=== PATIENT | female | born 1930 | race Caucasian/White ===

== ENCOUNTER 2019-07-03 07:48 | Emergency (ER) | payer MEDICARE, BC ==
[~2019-07-03] VITALS: Ht 172.7 cm; Wt 76.0 kg
[2019-07-03] MEDS ORDERED: MORPHINE SULFATE 2 MG/ML DISP.SYRIN. IV ONE (08:00)
[2019-07-03] MEDS ORDERED: ONDANSETRON PF 4 MG/2 ML VIAL. IVP ONE (08:00)
[2019-07-03] MEDS ORDERED: ALBUTEROL SULFATE 2.5 MG/3 ML NEBU. CONT NEB ONE (08:00)
[2019-07-03 08:09] LABS: BASO # 0.1 x10^3/uL (0.0-0.2); BASO % 1 % (0-3); EOS # 0.3 x10^3/uL (0.0-0.7); EOS % 2 % (0-3); HEMATOCRIT 47.6 % (36.0-47.0); HEMOGLOBIN 15.3 g/dL (12.0-15.5); LYMPH # 7.9 x10^3/uL (1.0-4.8); LYMPH % 53 % (24-48); MEAN CORPUSCULAR HEMOGLOBIN 30 pg (25-35); MEAN CORPUSCULAR HGB CONC 32 g/dL (31-37); MEAN CORPUSCULAR VOLUME 93 fL (79-100); MONO # 0.8 x10^3/uL (0.0-1.1); MONO % 6 % (0-9); NEUT # 5.8 x10^3uL (1.8-7.7); NEUT % 39 % (31-73); PLATELET COUNT 247 x10^3/uL (140-400); RED BLOOD COUNT 5.11 x10^6/uL (3.50-5.40); RED CELL DISTRIBUTION WIDTH 12.7 % (11.5-14.5); WHITE BLOOD COUNT 14.9 x10^3/uL (4.0-11.0)
[2019-07-03] MEDS ORDERED: IPRATRPIUM/ALBUTEROL 0.5/2.5MG 3 ML NEBU. NEB ONE (08:15)
[2019-07-03] MEDS ORDERED: FUROSEMIDE 40 MG/4 ML VIAL IVP ONE (08:15)
--- NOTE | 2019-07-03 08:16 | EKG ---
[address] [address] Test Date: 2019-07-03 Test Time: 08:10:42 Pat Name: BUDDY LUEVANO Department: Room: Gender: F Pen Maker: : [id number] Requested By: SUMIT AN Order Number: [id number] Reading MD: Measurements Intervals [place] Rate: 113 P: [place]: QRS: -17 QRSD: 78 T: 142 QT: 324 QTc: 450 Interpretive Statements IRREGULAR RHYTHM, NO P-WAVE FOUND LEFTWARD AXIS LVH WITH REPOLARIZATION ABNORMALITY ABNORMAL ECG RI6.01 No previous ECG available for comparison
[2019-07-03 08:17] LABS: CALCIUM 9.5 mg/dL (8.5-10.1); CREATININE 1.6 mg/dL (0.6-1.0); GFR 30.5; POTASSIUM 3.9 mmol/L (3.5-5.1)
--- NOTE | 2019-07-03 08:20 | PHYS DOC ---
Adult General Chief Complaint Chief Complaint: DYSPNEA/RESPIRATOY DISTRESS HPI HPI Patient is a 88-year-old female who presents with complaint of shortness of breath and cough. Patient reportedly has not been able to catch her breath this morning. EMS reports that upon their arrival patient's oxygen saturation was in the low 80s on 2 L of oxygen. Patient just states that she is unable to catch her breath. Patient does deny any chest pain. She is not able to answer any additional questions due to severity of symptoms. [] Review of Systems Review of Systems Constitutional: Denies fever or chills [] Respiratory: Complains of cough and shortness of breath [] Cardiovascular: No additional information not addressed in HPI [] GI: Denies abdominal pain, nausea, vomiting or diarrhea [] Neurologic: Denies headache, focal weakness or sensory changes [] Unable to fully assess review of systems due to severity of symptoms. Current Medications Current Medications Current Medications Medications (Trade) Dose Ordered Sig/Ross Start Time Stop Time Status Last Admin Dose Admin Albuterol Sulfate (Ventolin) 5 mg 1X ONCE 07/03/19 08:00 07/03/19 08:14 DC Albuterol/ Ipratropium (Duoneb) 3 ml 1X ONCE 07/03/19 08:15 07/03/19 08:16 DC Furosemide (Lasix) 40 mg 1X ONCE 07/03/19 08:15 07/03/19 08:16 DC Lorazepam (Ativan Inj) 1 mg 1X ONCE 07/03/19 08:15 07/03/19 08:16 DC Morphine Sulfate (Morphine 2mg Syringe) 2 mg 1X ONCE 07/03/19 08:00 07/03/19 08:14 DC 07/03/19 08:00 2 MG Ondansetron HCl (Zofran) 4 mg 1X ONCE 07/03/19 08:00 07/03/19 08:14 DC Allergies Allergies Allergies Coded Allergies Type Severity Reaction Last Updated Verified No Known Drug Allergies 07/03/19 No Physical Exam Physical Exam Constitutional: Well developed, well nourished, no acute distress, non-toxic appearance. [] HENT: Normocephalic, atraumatic, bilateral external ears normal, oropharynx moist, no oral exudates, nose normal. [] Eyes: PERRLA, EOMI, conjunctiva normal, no discharge. [] Neck: Normal range of motion, no tenderness, supple, no stridor. [] Cardiovascular:Heart rate regular rhythm, no murmur [] Lungs & Thorax: Bilateral breath sounds clear to auscultation [] Abdomen: Bowel sounds normal, soft, no tenderness, no masses, no pulsatile masses. [] Skin: Warm, dry, no erythema, no rash. [] Back: No tenderness, no CVA tenderness. [] Extremities: No tenderness, no cyanosis, no clubbing, ROM intact, no edema. [] Neurologic: Alert and oriented X 3, normal motor function, normal sensory function, no focal deficits noted. [] Psychologic: Affect normal, judgement normal, mood normal. [] Current Patient Data Vital Signs Vital Signs Date Time Temp Pulse Resp B/P (MAP) Pulse Ox O2 Delivery O2 Flow Rate FiO2 07/03/19 08:00 24 89 NonRebreather Mask Lab Results Laboratory Tests Test 07/03/19 07:50 White Blood Count 14.9 x10^3/uL (4.0-11.0) H Red Blood Count 5.11 x10^6/uL (3.50-5.40) Hemoglobin 15.3 g/dL (12.0-15.5) Hematocrit 47.6 % (36.0-47.0) H Mean Corpuscular Volume 93 fL (79-100) Mean Corpuscular Hemoglobin 30 pg (25-35) Mean Corpuscular Hemoglobin Concent 32 g/dL (31-37) Red Cell Distribution Width 12.7 % (11.5-14.5) Platelet Count 247 x10^3/uL (140-400) Neutrophils (%) (Auto) 39 % (31-73) Lymphocytes (%) (Auto) 53 % (24-48) H Monocytes (%) (Auto) 6 % (0-9) Eosinophils (%) (Auto) 2 % (0-3) Basophils (%) (Auto) 1 % (0-3) Neutrophils # (Auto) 5.8 x10^3uL (1.8-7.7) Lymphocytes # (Auto) 7.9 x10^3/uL (1.0-4.8) H Monocytes # (Auto) 0.8 x10^3/uL (0.0-1.1) Eosinophils # (Auto) 0.3 x10^3/uL (0.0-0.7) Basophils # (Auto) 0.1 x10^3/uL (0.0-0.2) Platelet Estimate Pending EKG EKG EKG demonstrates atrial fibrillation with RVR and rate of 113[] Radiology/Procedures Radiology/Procedures [] Course & Med Decision Making Course & Med Decision Making Pertinent Labs and Imaging studies reviewed. (See chart for details) [] Dragon Disclaimer Dragon Disclaimer This electronic medical record was generated, in whole or in part, using a voice recognition dictation system. Departure Departure: Impression: Primary Impression: NSTEMI (non-ST elevated myocardial infarction) Additional Impression: CHF (congestive heart failure) Disposition: XFER T-[facility] Admitting Physician: Elliot Louise Condition: IMPROVED Referrals: SOHEILA LEONE MD (PCP) Problem Qualifiers Additional Impression: CHF (congestive heart failure) Heart failure type: unspecified Heart failure chronicity: unspecified Qualified Codes: I50.9 - Heart failure, unspecified SUMIT AN Jr. DO Jul 03, 2019 08:20
[2019-07-03 08:31] LABS: ALBUMIN 4.2 g/dL (3.4-5.0); ALBUMIN/GLOBULIN RATIO 1.1 (1.0-1.7); TOTAL BILIRUBIN 0.5 mg/dL (0.2-1.0)
[2019-07-03] MEDS ORDERED: HEPARIN 25,000UTS/250ML PREMIX 250 ML IV PRN (08:45)
[2019-07-03] MEDS ORDERED: HEPARIN for IV BOLUS 10,000 UNIT/10 ML VIAL. IV ONE (08:45)
[2019-07-03] MEDS ORDERED: HEPARIN for IV BOLUS 10,000 UNIT/10 ML VIAL. IV PRN (08:45)
[2019-07-03] MEDS ORDERED: dilTIAZem 25 MG/5 ML VIAL IVP ONE (08:45)
[2019-07-03 08:56] LABS: BGAS PH 7.27 (7.35-7.45)
[2019-07-03 09:03] LABS: CLARITY,URINE CLEAR; COLOR,URINE STRAW; GLUCOSE,URINE 250 mg/dL (NEG)
[2019-07-03 09:04] LABS: BACTERIA,URINE 0 /HPF (0-FEW); BILIRUBIN,URINE NEG (NEG); NITRITE,URINE NEG (NEG); RBC,URINE RARE /HPF (0-2); SQUAMOUS EPITHELIAL CELL,UR OCC /LPF; UROBILINOGEN,URINE 0.2 mg/dL (0.2 mg/dL); WBC,URINE RARE /HPF (0-4)
--- NOTE | 2019-07-03 09:04 | RAD ---
PORTABLE CHEST 1V History: Shortness of breath Comparison: None. Findings: Bilateral interstitial thickening. Patchy bibasilar opacities. Small bilateral pleural effusions. Normal heart size. No pneumothorax. Impression: 1. Bilateral interstitial thickening, may represent pulmonary edema. 2. Small bilateral pleural effusions. Electronically signed by: Brian Fernández DO (07/03/2019 9:01 AM) [id number]
[2019-07-03 09:05] VITALS: BP 208/89
[2019-07-03 09:39] LABS: % BANDS 2 % (0-9); % BASOS 4 % (0-3); % EOS 3 % (0-5); % LYMPHS 48 % (24-48); % MONOS 7 % (0-10); % SEGS 36 % (35-66)
[2019-07-03 09:40] LABS: PLT ESTIMATE ADEQUATE (ADEQUATE)
== END 2019-07-03 09:55 | disposition short-term general hospital (02) ==
LOC: ER 07:48
DX: I21.4 Non-ST elevation (NSTEMI) myocardial infarction (principal); I50.9 Heart failure, unspecified
CPT/HCPCS: 36415; 71045; 80053; 81001; 82803; 83880; 84484; 85007; 85025; 85379; 85610; 85730; 93005; 94640; 96365; 96375; 96376; 99285; J1644; J1940; J2060; J2270; J3490; J7613; J7620

== ENCOUNTER 2019-11-17 15:20 | Emergency (ER) | payer MEDICARE, BC ==
[~2019-11-17] VITALS: Ht 162.6 cm; Wt 80.4 kg
[2019-11-17] MEDS ORDERED: SUCCINYLCHOLINE 200 MG/10 ML VIAL. ONE ×2 (15:30→15:34)
[2019-11-17] MEDS ORDERED: PROPOFOL 10,000 MCG/ML (100ML) VIAL IV ONE (15:30)
[2019-11-17] MEDS ORDERED: ETOMIDATE 40 MG/20 ML VIAL. IV ONE (15:30)
[2019-11-17] MEDS ORDERED: FUROSEMIDE 100 MG/10 ML VIAL ONE (15:43)
--- NOTE | 2019-11-17 15:58 | PHYS DOC ---
Past History Past Medical History: A-Fib, [place] Past Surgical History: No Surgical History Alcohol Use: None General Adult EDM: Chief Complaint: SHORTNESS OF BREATH HPI: HPI: Patient is an 89-year-old female who presents to the emergency department in respiratory failure. According to EMS, she was found in her car at the grocery store, although details of her location were not fully verified. EMS reported the patient with severe hypoxia, despite nonrebreather use, upon arrival in the emergency department her oxygen saturation was in the 70s on the nonrebreather. She will open her eyes to painful stimulus, but is otherwise unresponsive and not able to answer any questions. Her CODE STATUS, unknown at the time of initial presentation, but subsequently revealed to be DNR. There was no family to discuss CODE STATUS with, the patient's was attempted to be contact by phone but there was no answer. Due to the patient's nonresponsiveness, extremis and hypoxia, the decision was m kamari to manage her airway and intubate the patient. She is exhibiting diffuse expiratory crackles in all lung kaplan. The only o ther ER visit she has had here was in June for CHF, also with hypoxia, in the setting of a non-STEMI. She reportedly had a negative COVID test at her PCPs office about 3 weeks ago. This information is not verified. Review of Systems: Review of Systems: Unable to obtain review of systems secondary to patient's unresponsiveness Heart Score: Risk Factors: Risk Factors: DM, Current or recent (<one month) smoker, HTN, HLP, family history of CAD, obesity. Risk Scores: Score 0 - 3: 2.5% MACE over next 6 weeks - Discharge Home Score 4 - 6: 20.3% MACE over next 6 weeks - Admit for Clinical Observation Score 7 - 10: 72.7% MACE over next 6 weeks - Early Invasive Strategies Current Medications: Current Meds: Current Medications Medications (Trade) Dose Ordered Sig/Ross Start Time Stop Time Status Last Admin Dose Admin Furosemide (Lasix) 100 mg STK-MED ONCE 11/17/19 15:43 11/17/19 15:43 DC Succinylcholine Chloride (Anectine) 200 mg STK-MED ONCE 11/17/19 15:34 11/17/19 15:35 DC Allergies: Allergies: Allergies Coded Allergies Type Severity Reaction Last Updated Verified No Known Drug Allergies 07/03/19 No Physical Exam: PE: PHYSICAL EXAM: CONSTITUTIONAL: Well developed, well nourished HEAD: normocephalic, atraumatic EENT: PERRL, EOMI. Conjunctivae normal color, sclerae non-icteric; moist mucous membranes. NECK: Supple, non-tender; no meningismus. There is no JVD. LUNGS: Breathing is significantly labored. There are diffuse inspiratory and expiratory crackles, more prominent expiratory. HEART: Regular tachycardia, no murmur CHEST: No deformity; non-tender ABDOMEN: The abdomen is soft, and non-tender, no masses or bruits. EXTREM: Normal ROM; no deformity, no calf tenderness. Normal pulses palpable in all extremities. There is 2+ bilateral o pedal edema. SKIN: No rash; no diaphoresis NEURO: Patient is unresponsive. Current Patient Data: Labs: Laboratory Tests Test 11/17/19 15:35 11/17/19 15:47 White Blood Count 20.5 x10^3/uL Red Blood Count 5.28 x10^6/uL Hemoglobin 15.5 g/dL Hematocrit 48.3 % Mean Corpuscular Volume 91 fL Mean Corpuscular Hemoglobin 29 pg Mean Corpuscular Hemoglobin Concent 32 g/dL Red Cell Distribution Width 12.9 % Platelet Count 289 x10^3/uL Neutrophils (%) (Auto) 39 % Lymphocytes (%) (Auto) 53 % Monocytes (%) (Auto) 6 % Eosinophils (%) (Auto) 2 % Basophils (%) (Auto) 1 % Neutrophils # (Auto) 7.9 x10^3uL Lymphocytes # (Auto) 10.8 x10^3/uL Monocytes # (Auto) 1.3 x10^3/uL Eosinophils # (Auto) 0.3 x10^3/uL Basophils # (Auto) 0.2 x10^3/uL Platelet Estimate Pending Sodium Level 136 mmol/L Potassium Level 3.7 mmol/L Chloride Level 97 mmol/L Carbon Dioxide Level 29 mmol/L Anion Gap 10 Blood Urea Nitrogen 29 mg/dL Creatinine 1.7 mg/dL Estimated GFR (Cockcroft-Gault) 28.4 BUN/Creatinine Ratio 17 Glucose Level 250 mg/dL Lactic Acid Level 4.8 mmol/L Calcium Level 9.6 mg/dL Total Bilirubin 0.4 mg/dL Aspartate Amino Transf (AST/SGOT) 16 U/L Alanine Aminotransferase (ALT/SGPT) 19 U/L Alkaline Phosphatase 63 U/L Troponin I Quantitative 0.185 ng/mL DB-Tnr-U-Type Natriuretic Peptide 2619 pg/mL Total Protein 8.6 g/dL Albumin 3.9 g/dL Albumin/Globulin Ratio 0.8 Blood Gas pH 7.29 Blood Gas PCO2 54 mmHg Blood Gas PO2 138 mmHg Blood Gas HCO3 26 mmol/L Arterial Bld O2 Saturation (Calc) 99 % FiO2 100 % Current Medications Medications (Trade) Dose Ordered Sig/Ross Route PRN Reason Start Time Stop Time Status Last Admin Dose Admin Succinylcholine Chloride (Anectine) 200 mg STK-MED ONCE .ROUTE 11/17/19 15:34 11/17/19 15:35 DC Furosemide (Lasix) 100 mg STK-MED ONCE .ROUTE 11/17/19 15:43 11/17/19 15:43 DC Nitroglycerin/ Dextrose 250 ml @ 0 mls/hr 1X ONCE IV 11/17/19 16:00 11/17/19 16:01 DC Propofol 100 ml @ As Directed STK-MED ONCE IV 11/17/19 16:03 11/17/19 16:03 DC Piperacillin Sod/ Tazobactam Sod (Zosyn Per Pharmacy) 1 each 1X PRN MC SEE COMMENTS 11/17/19 16:45 Vancomycin HCl 1 gm/Sodium Chloride 250 ml @ 250 mls/hr 1X ONCE IV 11/17/19 16:45 11/17/19 16:42 DC Vancomycin HCl 2 gm/Sodium Chloride 500 ml @ 250 mls/hr 1X ONCE IV 11/17/19 16:45 11/17/19 18:44 Piperacillin Sod/ Tazobactam Sod 3.375 gm/Sodium Chloride 50 ml @ 100 mls/hr Q6HRS IV 11/17/19 17:00 Sodium Chloride 50 ml @ As Directed STK-MED ONCE .ROUTE 11/17/19 16:56 11/17/19 16:57 DC Sodium Chloride 50 ml @ As Directed STK-MED ONCE .ROUTE 11/17/19 16:57 11/17/19 16:58 DC Piperacillin Sod/ Tazobactam Sod (Zosyn) 3.375 gm STK-MED ONCE IV 11/17/19 16:58 11/17/19 16:58 DC EKG: EKG: [] Normal sinus rhythm at a rate of 120 bpm, normal axis, normal intervals, there is lateral T wave inversion. There are no acute ischemic ST/T changes. Radiology/Procedures: Radiology/Procedures: PROCEDURE: PORTABLE CHEST 1V Single AP view of the chest. Comparison: 07/03/2019. Indication: Respiratory failure Findings: Endotracheal tube is in good position sitting just above the walker. The heart is enlarged but stable. There is no pneumothorax or effusion. There are coarse reticular interstitial opacities identified predominantly in the left midlung in the right lung base. Impression: 1. Coarse reticular interstitial opacities suggest possible atypical infection or early ARDS. Endotracheal tube is seen just above the walker.[] Course & Med Decision Making: Course & Med Decision Making Pertinent Labs and Imaging studies reviewed. (See chart for details) [] 5:00 PM: The patient's condition has improved somewhat, her blood pressure has been labile, she initially dropped her blood pressure and her nitro drip and propofol drip were titrated downwards, but her pressure came up again and her medications were gradually titrated upwards. She is oxygenating in the 90s. Differential diagnosis includes flash pulmonary edema/CHF, as well as COVID, and other sources of infections. Because CHF is high on the differential the patient cannot be given further fluid resuscitation unless necessary for hemodynamic support. I have paged the hospitalist at [facility] to transfer the patient. Because she is intubated she will need to be transferred. There is still no family present in the emergency department. Although the patient is a DNR, it appears, from the circumstances of her respiratory arrest, in her car in the supermarket, that she is fairly functional at baseline. Although she is a DNR, if this is acute pulmonary edema, this might be a transient episode and she might be able to be returned to her baseline with some transient ventilatory support. Rather than withdraw care at this time, without consultation with the patient's family, she will be treated supportively at this time, with continuation of therapy until further discussion involving the family could be made. 5:15 PM: Dr. Hudson has accepted the patient in transfer. Patient's blood pressure has been labile and her drips of propofol and nitroglycerin are being titrated to treat her alternating high and low blood pressure. Her heart rate and oxygenation remained stable at this time CRITICAL CARE TIME: 50 Minutes, excluding any procedures and care of other patients. INTUBATION NOTE: The patient was preoxygenated, the to the greatest degree possible, with a [id number], and she was given 20 mg of etomidate and 100 mg of succinylcholine, and intubated using the glide scope. There was some frothy material in the pharynx, and a lot of liquid in the endotracheal tube which was suctioned almost immediately after intubation. Tube was secured. There was positive bilateral chest rise, bilateral breath sounds, and positive end-tidal CO2 detected after intubation. Patient tolerated intubation well. Dragon Disclaimer: [employer] medical Disclaimer: This electronic medical record was generated, in whole or in part, using a voice recognition dictation system. Departure Departure: Impression: Primary Impression: Respiratory failure Disposition: XFER [facility] Condition: CRITICAL Referrals: SOHEILA LEONE MD (PCP) Justification of Admission: Justification of Admission: Justification of Admission Dx: N/A TONYA HERRERA MD Nov 17, 2019 15:58
[2019-11-17] MEDS ORDERED: NITROGLYCERIN PREMIX 250 ML IV ONE (16:00)
[2019-11-17] MEDS ORDERED: PROPOFOL 100 ML IV ONE (16:03)
[2019-11-17 16:20] LABS: BGAS PH 7.29 (7.35-7.45)
--- NOTE | 2019-11-17 16:27 | RAD ---
Single AP view of the chest. Comparison: 07/03/2019. Indication: Respiratory failure Findings: Endotracheal tube is in good position sitting just above the walker. The heart is enlarged but stable. There is no pneumothorax or effusion. There are coarse reticular interstitial opacities identified predominantly in the left midlung in the right lung base. Impression: 1. Coarse reticular interstitial opacities suggest possible atypical infection or early ARDS. Endotracheal tube is seen just above the walker. Electronically signed by: Robert Boudreaux MD (11/17/2019 4:24 PM) [id number]
[2019-11-17 16:30] LABS: BASO # 0.2 x10^3/uL (0.0-0.2); BASO % 1 % (0-3); CALCIUM 9.6 mg/dL (8.5-10.1); CREATININE 1.7 mg/dL (0.6-1.0); EOS # 0.3 x10^3/uL (0.0-0.7); EOS % 2 % (0-3); GFR 28.4; HEMATOCRIT 48.3 % (36.0-47.0); HEMOGLOBIN 15.5 g/dL (12.0-15.5); LYMPH # 10.8 x10^3/uL (1.0-4.8); LYMPH % 53 % (24-48); MEAN CORPUSCULAR HEMOGLOBIN 29 pg (25-35); MEAN CORPUSCULAR HGB CONC 32 g/dL (31-37); MEAN CORPUSCULAR VOLUME 91 fL (79-100); MONO # 1.3 x10^3/uL (0.0-1.1); MONO % 6 % (0-9); NEUT # 7.9 x10^3uL (1.8-7.7); NEUT % 39 % (31-73); PLATELET COUNT 289 x10^3/uL (140-400); POTASSIUM 3.7 mmol/L (3.5-5.1); RED BLOOD COUNT 5.28 x10^6/uL (3.50-5.40); RED CELL DISTRIBUTION WIDTH 12.9 % (11.5-14.5); WHITE BLOOD COUNT 20.5 x10^3/uL (4.0-11.0)
[2019-11-17 16:42] LABS: ALBUMIN 3.9 g/dL (3.4-5.0); ALBUMIN/GLOBULIN RATIO 0.8 (1.0-1.7); TOTAL BILIRUBIN 0.4 mg/dL (0.2-1.0); TOTAL PROTEIN 8.6 g/dL (6.4-8.2)
[2019-11-17] MEDS ORDERED: VANCOMYCIN 1 GM in IV NORMAL SALINE 250ML 250 ML IV ONE (16:45)
[2019-11-17] MEDS ORDERED: VANCOMYCIN 2 GM in IV NORMAL SALINE 500ML 500 ML IV ONE (16:45)
[2019-11-17] MEDS ORDERED: PIP/TAZO PER PHARMACY MC PRN (16:45)
[2019-11-17] MEDS ORDERED: IV NORMAL SALINE 50ML 50 ML ONE ×2 (16:56→16:57)
[2019-11-17] MEDS ORDERED: PIPERACILLIN/TAZOBACTAM 3.375 GM VIAL IV ONE (16:58)
[2019-11-17] MEDS ORDERED: PIPERACILLIN/TAZOBACTAM 3.375 GM in IV NORMAL SALINE 50ML 50 ML IV SCH (17:00)
--- NOTE | 2019-11-17 17:35 | EKG ---
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
[2019-11-17 17:50] LABS: % BANDS 1 % (0-9); % EOS 1 % (0-5); % MONOS 3 % (0-10); % SEGS 31 % (35-66)
[2019-11-17 17:51] LABS: PLT ESTIMATE ADEQUATE (ADEQUATE)
[2019-11-17 17:52] LABS: % LYMPHS 64 % (24-48)
[2019-11-17 19:00] VITALS: BP 80/50
== END 2019-11-17 19:40 | disposition short-term general hospital (02) ==
LOC: ER 15:20
DX: J96.91 Respiratory failure, unspecified with hypoxia (principal); I48.20 Chronic atrial fibrillation, unspecified; I25.2 Old myocardial infarction; Z79.899 Other long term (current) drug therapy
CPT/HCPCS: 31500; 36415; 36600; 71045; 80053; 82803; 83605; 83880; 84484; 85007; 85025; 85610; 85730; 87040; 93005; 94002; 96365; 96367; 96375; 99291; J0330; J2543; J2704; J3010; J3370; J7040; U0003

== ENCOUNTER 2020-01-13 07:33 | Inpatient (IN) | payer MEDICARE, BC ==
[2020-01-13] VITALS (17 sets, daily range): BP systolic 92–197; BP diastolic 42–113
[~2020-01-13] VITALS: Ht 160 cm; Wt 75.7 kg
[2020-01-13] MEDS ORDERED: methylPREDNISolone SOD SUCC PF 125 MG/2 ML VIAL. IV ONE (07:45)
[2020-01-13] MEDS ORDERED: IPRATRPIUM/ALBUTEROL 0.5/2.5MG 3 ML NEBU. NEB ONE (07:45)
--- NOTE | 2020-01-13 07:47 | PHYS DOC ---
Past History Past Medical History: A-Fib, ID Past Surgical History: No Surgical History Alcohol Use: None Adult General HPI HPI Patient is a 89-year-old female who comes in in acute respiratory failure. Little history is obtainable from patient, majority obtained from EMS. Per EMS report, patient was found by a female with unknown relation to patient who lives at residents with patient to be profoundly short of breath. On arrival by fire crew, patient was found to be profoundly hypoxic around 70% on room air. Supplemental oxygen, 6 L via nasal cannula was started which improved patient's oxygenation to upper 80%. Patient was then emergently transported to our facility for evaluation. On arrival, patient GCS 9, communicating in single word sentences/answers. Per chart review, patient presented similarly in acute respiratory failure early November 2019. She was intubated at that time and transferred out for higher acuity of care, it was later found out that she was DNR status. Patient's CODE STATUS is unknown at this time, EMS was unable to elicit CODE STATUS from patient field marketing representative on site prior to transport here, patient currently does not have capacity and cannot accurately communicate CODE STATUS. After chart review, it appears patient is DNR. It is unknown if she has had any known COVID-19 patient exposure Review of Systems Review of Systems Unobtainable due to acute respiratory failure Current Medications Current Medications Current Medications Medications (Trade) Dose Ordered Sig/Ross Start Time Stop Time Status Last Admin Dose Admin Albuterol/ Ipratropium (Duoneb) 3 ml 1X ONCE 01/13/20 07:45 01/13/20 07:46 UNV Methylprednisolone Sodium Succinate (SOLU-Medrol 125MG VIAL) 125 mg 1X ONCE 01/13/20 07:45 01/13/20 07:46 UNV Allergies Allergies Allergies Coded Allergies Type Severity Reaction Last Updated Verified No Known Drug Allergies 07/03/19 No Physical Exam Physical Exam Constitutional: Well developed, well nourished, toxic appearing, acute respiratory distress HENT: Normocephalic, atraumatic, bilateral external ears normal, oropharynx dry, poor dentition, no oral exudates, nose normal. Eyes: PERRLA, EOMI, conjunctiva normal, no discharge. Neck: Normal range of motion, no tenderness, supple, no stridor. Cardiovascular: Heart rate tachycardic, sinus rhythm, no murmurs rubs or gallops Lungs & Thorax: Respiratory failure, gross accessory muscle usage noted, wheezes and rhonchi audible bilaterally Abdomen: Bowel sounds normal, soft, no tenderness, no masses, no pulsatile masses. Nonsurgical abdomen, no peritoneal signs Skin: Warm, diaphoretic, no erythema, no rash. Back: No tenderness, no CVA tenderness. Extremities: No tenderness, no cyanosis, no clubbing, ROM intact, no edema. Neurologic: Alert, not oriented, grossly normal motor & sensory function, no focal deficits noted. Psychologic: Flat affect, mood appropriate to situation Current Patient Data Vital Signs Vital Signs Date Time Temp Pulse Resp B/P (MAP) Pulse Ox O2 Delivery O2 Flow Rate FiO2 01/13/20 08:39 90 BiPAP/CPAP 01/13/20 07:33 97.9 107 26 185/112 (136) 6.0 Lab Results Laboratory Tests Test 01/13/20 07:35 01/13/20 07:44 Blood Gas pH 7.07 (7.35-7.45) Blood Gas PCO2 78 mmHg (35-45) Blood Gas PO2 49 mmHg (71-100) Blood Gas HCO3 23 mmol/L (22-26) Arterial Bld O2 Saturation (Calc) 66 % (92-99) FiO2 100 % White Blood Count 21.4 x10^3/uL (4.0-11.0) Red Blood Count 4.99 x10^6/uL (3.50-5.40) Hemoglobin 14.8 g/dL (12.0-15.5) Hematocrit 46.5 % (36.0-47.0) Mean Corpuscular Volume 93 fL (79-100) Mean Corpuscular Hemoglobin 30 pg (25-35) Mean Corpuscular Hemoglobin Concent 32 g/dL (31-37) Red Cell Distribution Width 13.7 % (11.5-14.5) Platelet Count 273 x10^3/uL (140-400) Neutrophils (%) (Auto) 36 % (31-73) Lymphocytes (%) (Auto) 55 % (24-48) Monocytes (%) (Auto) 6 % (0-9) Eosinophils (%) (Auto) 2 % (0-3) Basophils (%) (Auto) 1 % (0-3) Neutrophils # (Auto) 7.7 x10^3uL (1.8-7.7) Lymphocytes # (Auto) 11.7 x10^3/uL (1.0-4.8) Monocytes # (Auto) 1.3 x10^3/uL (0.0-1.1) Eosinophils # (Auto) 0.5 x10^3/uL (0.0-0.7) Basophils # (Auto) 0.2 x10^3/uL (0.0-0.2) Sodium Level 139 mmol/L (136-145) Potassium Level 3.8 mmol/L (3.5-5.1) Chloride Level 102 mmol/L (98-107) Carbon Dioxide Level 24 mmol/L (21-32) Anion Gap 13 (6-14) Blood Urea Nitrogen 38 mg/dL (7-20) Creatinine 2.0 mg/dL (0.6-1.0) Estimated GFR (Cockcroft-Gault) 23.5 BUN/Creatinine Ratio 19 (6-20) Glucose Level 321 mg/dL (70-99) Lactic Acid Level 5.3 mmol/L (0.4-2.0) Calcium Level 9.4 mg/dL (8.5-10.1) Total Bilirubin 0.5 mg/dL (0.2-1.0) Aspartate Amino Transf (AST/SGOT) 12 U/L (15-37) Alanine Aminotransferase (ALT/SGPT) 16 U/L (14-59) Alkaline Phosphatase 57 U/L (46-116) Troponin I Quantitative 0.070 ng/mL (0-0.055) ZD-Hcy-U-Type Natriuretic Peptide 3837 pg/mL (0-449) Total Protein 8.3 g/dL (6.4-8.2) Albumin 3.7 g/dL (3.4-5.0) Albumin/Globulin Ratio 0.8 (1.0-1.7) EKG EKG EKG ordered and interpreted by myself at 0819 hrs. as sinus tachycardia with a rate at 107 bpm, intervals grossly unremarkable except prolonged QTC at 492, left axis deviation, T wave inversions in leads aVL and V6, no STEMI Radiology/Procedures Radiology/Procedures PROCEDURE: PORTABLE CHEST 1V PORTABLE CHEST 1V 01/13/2020 7:39 AM INDICATION: Shortness of breath COMPARISON: 11/17/2019 TECHNIQUE: Portable frontal view of the chest is provided. FINDINGS: The cardiomediastinal silhouette is similar in appearance. Bilateral mixed interstitial and alveolar airspace disease is noted, progressed since the prior examination. Multifocal nodular opacities are present. Increase in small bilateral pleural effusions with adjacent compressive atelectasis versus infiltrate. No pneumothorax. No suspicious osseous abnormality. IMPRESSION: Bilateral mixed interstitial and alveolar airspace disease with interval progression since 11/17/2019. Electronically signed by: Allegra Stone MD (01/13/2020 8:21 AM) [id number] Course & Med Decision Making Course & Med Decision Making Patient seen on immediate ER arrival Airway patent, patient and obvious respiratory distress/failure, tachycardic (115bpm), hypoxic (72% on 6L), tachypneic (32 rr), and mildly hypertensive on arrival. GCS 9 Limited history obtained, comprehensive physical exam performed. I attempted to elicit CODE STATUS with no success. I attempted to contact patient contact on file but number is not working. Chart reviewed, appears patient is DNR IV access obtained with x2 large-bore IVs, extensive diagnostic studies ordered, patient transition from nasal cannula to nonrebreather mask with minimal relief in symptomology, escalated therapy to BIPAP which improved patient's resp distress Patient's PCP called, Dr. Walker, and patient's past medical history and case discussed. He confirmed she is DNR status. I discussed need for admission to ICU in critical condition, he was agreeable Patient continued on BiPAP, 125 mg IV Solu-Medrol administered, DuoNeb x1 given, and IV Unasyn (patient appears high risk for aspiration) and Levaquin started for empiric therapy for bilateral lung infiltrates It appears patient is septic and her acute respiratory failure is stemming from bilateral lung infiltrates. Patient also appears to have type II demand mismatch NSTEMI from her current respiratory failure/illness. In all, patient stabilized during current ER encounter but remains in critical condition. Patient transported to [facility] for further medical management in ICU setting under the care of Dr. Walker. Alise Disclaimer Alise Disclaimer This electronic medical record was generated, in whole or in part, using a voice recognition dictation system. Departure Departure: Impression: Primary Impression: Acute respiratory failure Additional Impressions: Sepsis Bilateral interstitial pneumonia NSTEMI (non-ST elevated myocardial infarction) Person under investigation for COVID-19 Disposition: ADMITTED INPATIENT ([facility]) Admitting Physician: Soheila Walekr Condition: STABLE Referrals: SOHEILA WALKER MD (PCP) Justification of Admission: Justification of Admission: Justification of Admission Dx: Yes Respiratory Failure: Severe Resp Distress HEART Score for Chest Pain PTs The HEART Score for CP Pts HEART Score for Chest Pain: HEART Score for Chest Pain Response (Comments) Value ECG Nonspecific Repolarizatio 1 Age > 65 2 Risk Factors >3 Risk Factors or Hx CAD 2 Troponin >1-<3x Normal Limit 1 Total 6 Risk Factors: Risk Factors: DM, Current or recent (<one month) smoker, HTN, HLP, family history of CAD, obesity. Risk Scores: Score 0 - 3: 2.5% MACE over next 6 weeks - Discharge Home Score 4 - 6: 20.3% MACE over next 6 weeks - Admit for Clinical Observation Score 7 - 10: 72.7% MACE over next 6 weeks - Early Invasive Strategies Sepsis Assessment Date and Time of Assessment Date: Jan 13, 2020 Time: 08:12 Respirations Respiratory Effort: Accessory muscles, Shortness of air, Labored Respiratory Pattern: Tachypnea Cardiovascular Pulse Rhythm: Regular HEART: No rubs, clicks or gallop Lung Sounds Breath Sounds: Rhochi Capillary Refill Capillary Refill: Rt Hand < 3 seconds Peripheral Pulse Pulse Location: Radial Pulse Strength: Normal (2+) Pulse Assessment Method: Monitor Integumentary Skin: Warm Skin Moisture: Diaphoretic Skin Turgor: Normal Skin Color: warm, moist Fingernail Color: WNL Problem Qualifiers SUREKHA ECKERT DO Jan 13, 2020 07:47
[2020-01-13 08:02] LABS: BGAS PH 7.07 (7.35-7.45)
[2020-01-13] MEDS ORDERED: AMPICILLIN/SULBACTAM 3 GM in IV NORMAL SALINE 100ML 100 ML IV ONE (08:15)
[2020-01-13 08:23] LABS: CALCIUM 9.4 mg/dL (8.5-10.1); GFR 23.5; POTASSIUM 3.8 mmol/L (3.5-5.1)
--- NOTE | 2020-01-13 08:24 | RAD ---
PORTABLE CHEST 1V 01/13/2020 7:39 AM INDICATION: Shortness of breath COMPARISON: 11/17/2019 TECHNIQUE: Portable frontal view of the chest is provided. FINDINGS: The cardiomediastinal silhouette is similar in appearance. Bilateral mixed interstitial and alveolar airspace disease is noted, progressed since the prior examination. Multifocal nodular opacities are present. Increase in small bilateral pleural effusions with adjacent compressive atelectasis versus infiltrate. No pneumothorax. No suspicious osseous abnormality. IMPRESSION: Bilateral mixed interstitial and alveolar airspace disease with interval progression since 11/17/2019. Electronically signed by: Allegra Stone MD (01/13/2020 8:21 AM) [id number]
[2020-01-13 08:25] LABS: ALBUMIN 3.7 g/dL (3.4-5.0); ALBUMIN/GLOBULIN RATIO 0.8 (1.0-1.7); TOTAL BILIRUBIN 0.5 mg/dL (0.2-1.0); TOTAL PROTEIN 8.3 g/dL (6.4-8.2)
[2020-01-13 08:34] LABS: BASO # 0.2 x10^3/uL (0.0-0.2); BASO % 1 % (0-3); EOS # 0.5 x10^3/uL (0.0-0.7); EOS % 2 % (0-3); HEMATOCRIT 46.5 % (36.0-47.0); HEMOGLOBIN 14.8 g/dL (12.0-15.5); LYMPH # 11.7 x10^3/uL (1.0-4.8); LYMPH % 55 % (24-48); MEAN CORPUSCULAR HEMOGLOBIN 30 pg (25-35); MEAN CORPUSCULAR HGB CONC 32 g/dL (31-37); MEAN CORPUSCULAR VOLUME 93 fL (79-100); MONO # 1.3 x10^3/uL (0.0-1.1); MONO % 6 % (0-9); NEUT # 7.7 x10^3uL (1.8-7.7); NEUT % 36 % (31-73); PLATELET COUNT 273 x10^3/uL (140-400); RED BLOOD COUNT 4.99 x10^6/uL (3.50-5.40); RED CELL DISTRIBUTION WIDTH 13.7 % (11.5-14.5); WHITE BLOOD COUNT 21.4 x10^3/uL (4.0-11.0)
[2020-01-13] MEDS ORDERED: HEPARIN for IV BOLUS 10,000 UNIT/10 ML VIAL. IV PRN (08:45)
[2020-01-13] MEDS ORDERED: HEPARIN for IV BOLUS 10,000 UNIT/10 ML VIAL. IV ONE (08:45)
[2020-01-13] MEDS ORDERED: HEPARIN 25,000UTS/250ML PREMIX 250 ML IV PRN (08:45)
[2020-01-13] MEDS ORDERED: ALBUTEROL SULFATE 8GM INHALER. INH PRN (09:30)
--- NOTE | 2020-01-13 10:30 | NUR ---
Pt admitted per ED per EMS. Pt on bipap 93% 75% FIO2. PT did tolerate well for a while, than pt started pulling off mask saying she did not want to wear it. We attempted to put pt on 15 L non-rebreather sat's 86%. Gave pt neb with no help in sat's. PT reported her "heart" is hurting. Pt dyspnic, tachycardic and cyanotic with noted perspiration. PT placed back on Bipap. Called and ordered some mild sedation. Benoit placed for accurate and I and O and pt unable to tolerate exertion. PT is PUI at this time and in precautions. Pt confused on admission and unable to verbalize understanding of poc and orientation to unit. PT did tell Linda CUMMINS on admit that she would be intubated if needed. Will call DPOA and revisit code status. Dr Walker notified of change in patient condition. Hue Juarez RN
[2020-01-13] MEDS ORDERED: BUDESONIDE 0.5 MG/2 ML NEBU ONE (10:54)
--- NOTE | 2020-01-13 12:34 | NUR ---
IP: patient PUI for COVID-19, requires contact and airborne precautions.
[2020-01-13 13:03] LABS: BGAS PH 7.22 (7.35-7.45)
--- NOTE | 2020-01-13 13:32 | HP ---
ADMIT DATE: 01/13/2020 HISTORY OF PRESENT ILLNESS: An 89-year-old female came in through the Emergency Room, apparently had been feeling well until yesterday when she began to have increased shortness of breath and increased acute respiratory failure, required 6 liters of O2 oxygenation up to 88%; otherwise, some IV antibiotic therapy and mild treatments. The patient came up into the low 90s; however, due to the lack of facility care here, we were going to have to transfer. Apparently 2 months ago, she did require intubation, although at the present time, she is doing well with a BiPAP. In any case, the patient did talk and greet me and was aware of who I was. She was mentally competent at the time. The patient is a DNR. Records were transferred over here to the hospital showing she was a DNR and did not want to be intubated, but that may have changed. The patient was admitted for acute respiratory failure and pneumonia in multiple lobes, sepsis, and continue with septic protocol, continue to monitor her accordingly. PAST MEDICAL HISTORY: She has numerous issues from previous admissions including history of stroke, DVT, hypertension, hypercalcemia, hysterectomy, tonsillectomy, appendectomy, cholecystectomy. ALLERGIES: CODEINE, MORPHINE AND FLU SHOTS. CURRENT MEDICATIONS: Triamterene/hydrochlorothiazide. FAMILY HISTORY: Parents , unknown causes and not significant here. REVIEW OF SYSTEMS: The patient is not able to give much in the way of history as she is on a BiPAP and not talking very well, otherwise. PHYSICAL EXAMINATION: VITAL SIGNS: Blood pressure 113/57, respiratory rate 24, pulse 90, afebrile. The patient is responsive to me as she talks and actually stuck out her hand and greeted me. Her blood pressure otherwise has gone anywhere from 185/112 down to 113/60, respiratory rate 24, pulse 94-91 and afebrile as noted 97.9. She is on BiPAP at 40%. HEENT: The patient's head was atraumatic, normocephalic. Eyes: PERRL. A BiPAP in place. NECK: Supple. LUNGS: Diminished, coarse breath sounds noted throughout. CARDIOVASCULAR: Regular sinus rhythm. ABDOMEN: Soft, nontender. EXTREMITIES: No clubbing, cyanosis, or edema. Pulses noted distally. Cold feet. NEUROLOGIC: As noted, alert, but very sedate from the illness. LABORATORY DATA: Her white count was 21,000. Chemistry: Sodium, potassium, 139, 3.8, 38 and 2. Lactic acid 5.3 (NC), pH of 7.07, pCO2 of 78, pO2 of 49. Troponins negative. Chest x-ray shows multiple lobe pneumonia, bilateral mixed interstitial alveolar airspace disease. IMPRESSION: As noted acute on top of chronic respiratory failure, acute on top of chronic renal failure, sepsis. Continue IV antibiotic therapy and make further evaluation on her as indicated per those results. SOHEILA LEONE MD DR: RAFAEL/milan JOB#: [id number] / [id number]
[2020-01-13] MEDS ORDERED: FUROSEMIDE 40 MG/4 ML VIAL IVP ONE (13:45)
[2020-01-13] MEDS ORDERED: ONDANSETRON PF 4 MG/2 ML VIAL. IVP PRN (13:45)
[2020-01-13] MEDS ORDERED: DEXTROSE 50% 25 GM / 50ML DISP.SYRIN. IV PRN (13:45)
[2020-01-13] MEDS ORDERED: MORPHINE SULFATE 2 MG/ML DISP.SYRIN. IV PRN (13:45)
--- NOTE | 2020-01-13 13:52 | EKG ---
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
[2020-01-13] MEDS ORDERED: ENOXAPARIN 40 MG/0.4 ML SYRINGE. SQ SCH ×2 (14:00→15:30)
--- NOTE | 2020-01-13 14:00 | NUR ---
PT can tolerate 15L non rebreather better at this time. PT improved and is AxOx3. PT trop [address] Walker notified. PT wants to stay at this hospital no matter what. "if I , than I here". PT wants DNR at this time. Talked to pt about NSTEMI and she verbalized understanding that we do not have treatment for that at this facility. SHELLY angeles spoke with numerous times and was involved in decision making with the patient. PT was able to sit up and have a normal conversation with no dyspnea. Ivanna CUMMINS
[2020-01-13 14:26] LABS: % ATYL 17 % (0-0); % BASOS 1 % (0-3); % EOS 2 % (0-5); % LYMPHS 37 % (24-48); % MONOS 3 % (0-10); % SEGS 40 % (35-66)
[2020-01-13 14:28] LABS: PLT ESTIMATE ADEQUATE (ADEQUATE)
[2020-01-13 14:31] LABS: BURR CELLS FEW
[2020-01-13] MEDS ORDERED: FUROSEMIDE 20 MG/2 ML VIAL IVP ONE (15:30)
[2020-01-13 15:31] LABS: BILIRUBIN,URINE NEG (NEG); CLARITY,URINE HAZY; COLOR,URINE STRAW; GLUCOSE,URINE 100 mg/dL (NEG)
[2020-01-13 15:32] LABS: NITRITE,URINE NEG (NEG); RBC,URINE OCC /HPF (0-2); UROBILINOGEN,URINE 0.2 mg/dL (0.2 mg/dL)
[2020-01-13 15:33] LABS: BACTERIA,URINE FEW /HPF (0-FEW)
[2020-01-13] MEDS: IPRATRPIUM/ALBUTEROL 0.5/2.5MG 3 ML NEBU. NEB SCH ×2 (15:55→20:00)
[2020-01-13] MEDS: DEXAMETHASONE SOD PHOS 4 MG/ML VIAL. IVP SCH ×2 (16:29→20:41)
[2020-01-13] MEDS: BENZONATATE 100 MG CAPSULE. PO PRN ×2 (16:32→20:40)
[2020-01-13] MEDS: INSULIN LISPRO 300 UNITS/3 ML VIAL. SQ SCH (17:00)
[2020-01-13] MEDS ORDERED: POTASSIUM CHLORIDE 20 MEQ TABLET.ER. PO ONE (17:00)
--- NOTE | 2020-01-13 17:23 | EKG ---
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
[2020-01-13] MEDS ORDERED: ATOR40TA59 PO (17:29)
[2020-01-13] MEDS ORDERED: FAMO20TA5 PO (17:29)
[2020-01-13] MEDS ORDERED: AMLO10TA4 PO (17:35)
[2020-01-13] MEDS ORDERED: METO50TA6 PO (17:40)
[2020-01-13] MEDS ORDERED: CLOP75TA57 PO (17:40)
[2020-01-13] MEDS ORDERED: ASPI81TA59 PO (17:40)
[2020-01-13 20:37] LABS: BGAS PH 7.39 (7.35-7.45)
[2020-01-13] MEDS: AMPICILLIN/SULBACTAM 3 GM in IV NORMAL SALINE 100ML 100 ML IV SCH (20:40)
[2020-01-13] MEDS: FAMOTIDINE 20 MG TABLET PO SCH (20:40)
[2020-01-13] MEDS: ASPIRIN CHEWABLE 81 MG TABLET. PO SCH (20:40)
[2020-01-13] MEDS ORDERED: ATORVASTATIN CALCIUM 20 MG TABLET PO SCH (21:00)
[2020-01-13] MEDS ORDERED: METOPROLOL TART IMMED RELEASE 50 MG TABLET PO SCH (21:00)
--- NOTE | 2020-01-13 22:40 | NUR ---
Pt A&Ox4 at change of shift but can be forgetful at times. Pt's only two request are that we find the [employer] game for her to watch and that she "stay here at this hospital if things turn south." Pt refusing to wear the Bipap anymore if she has to and for anymore lab draws tonight. Was able to convince her to have the ABGs done but refused trop draw, will get in AM if she allows. Pt on high flow NC at 10L with sats above >93%. ABG did improved. Pt sat on side of bed to take pills and have HS snack. Pt assist x1 to bathroom for BM and back into bed, pt stated that SOA was improved. Pt c/o arthritic pain in knee joints, improved with pillow placement.
[2020-01-14] VITALS (24 sets, daily range): BP systolic 92–156; BP diastolic 43–90
--- NOTE | 2020-01-14 05:15 | NUR ---
Pt did good the rest of the shift maintaining O2 sat >93% on high flow NC. Pt finally fell asleep around 0100, stayed up watching TV, stating "this is what I do at home till I fall asleep." Pt agreeable to AM lab draw, tolerated fine. Pt was able to titrate down to 8L high flow NC by AM. Pt without compliant this AM.
[2020-01-14] MEDS: IPRATRPIUM/ALBUTEROL 0.5/2.5MG 3 ML NEBU. NEB SCH ×4 (06:10→20:42)
[2020-01-14 06:26] LABS: BASO % 0 % (0-3); EOS % 0 % (0-3); HEMATOCRIT 35.4 % (36.0-47.0); HEMOGLOBIN 11.7 g/dL (12.0-15.5); LYMPH % 6 % (24-48); MEAN CORPUSCULAR HEMOGLOBIN 30 pg (25-35); MEAN CORPUSCULAR HGB CONC 33 g/dL (31-37); MEAN CORPUSCULAR VOLUME 90 fL (79-100); MONO # 0.7 x10^3/uL (0.0-1.1); MONO % 4 % (0-9); NEUT # 14.6 x10^3uL (1.8-7.7); NEUT % 89 % (31-73); PLATELET COUNT 203 x10^3/uL (140-400); RED BLOOD COUNT 3.96 x10^6/uL (3.50-5.40); RED CELL DISTRIBUTION WIDTH 12.9 % (11.5-14.5); WHITE BLOOD COUNT 16.3 x10^3/uL (4.0-11.0)
[2020-01-14 06:42] LABS: ALBUMIN/GLOBULIN RATIO 0.9 (1.0-1.7); CALCIUM 8.7 mg/dL (8.5-10.1); CREATININE 2.4 mg/dL (0.6-1.0); GFR 19.1; MAGNESIUM 1.7 mg/dL (1.8-2.4); POTASSIUM 4.7 mmol/L (3.5-5.1); TOTAL BILIRUBIN 0.6 mg/dL (0.2-1.0); TOTAL PROTEIN 6.5 g/dL (6.4-8.2)
[2020-01-14 07:27] LABS: % BANDS 7 % (0-9); % LYMPHS 3 % (24-48); % MONOS 6 % (0-10); % SEGS 84 % (35-66)
[2020-01-14 07:28] LABS: PLT ESTIMATE ADEQUATE (ADEQUATE)
[2020-01-14 07:30] LABS: TOXIC GRANULATION SLIGHT
[2020-01-14] MEDS ORDERED: MAGNESIUM SULFATE 2GM 50 ML IV ONE (07:30)
[2020-01-14] MEDS: BENZONATATE 100 MG CAPSULE. PO PRN ×2 (07:48→20:57)
[2020-01-14] MEDS: DEXAMETHASONE SOD PHOS 4 MG/ML VIAL. IVP SCH ×2 (07:48→20:57)
[2020-01-14] MEDS: ASPIRIN CHEWABLE 81 MG TABLET. PO SCH ×2 (07:48→20:57)
[2020-01-14] MEDS: CLOPIDOGREL BISULFATE 75 MG TABLET PO SCH (07:49)
[2020-01-14] MEDS: AMPICILLIN/SULBACTAM 3 GM in IV NORMAL SALINE 100ML 100 ML IV SCH ×2 (07:50→20:58)
[2020-01-14] MEDS: INSULIN LISPRO 300 UNITS/3 ML VIAL. SQ SCH ×3 (08:53→17:00)
[2020-01-14] MEDS: amLODIPine BESYLATE 10 MG TABLET PO SCH (09:00)
--- NOTE | 2020-01-14 11:00 | NUR ---
Pt complains about sudden left sided neck pain. She states "it hurts right here.." and places hand over left neck right under jaw. when asked pt to explain what pain feels like she states "it just hurts". Pt is tachycardic at this time. Denies any chest pain or SOA. Dr. Walker notified, ordered stat EKG and tylenol 650mg and then stated he is on way to ICU.
[2020-01-14] MEDS: ACETAMINOPHEN 325 MG TABLET PO PRN (11:16)
[2020-01-14] MEDS: METOPROLOL TART IMMED RELEASE 25 MG TABLET PO SCH ×2 (11:36→20:58)
--- NOTE | 2020-01-14 11:38 | EKG ---
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
--- NOTE | 2020-01-14 12:10 | RAD ---
EXAM: CHEST AP ONLY INDICATION: Reason: pneumonia / Spl. Instructions: / History: . TECHNIQUE: Single view COMPARISON: 01/13/2020 chest x-ray FINDINGS: Heart is mildly enlarged. The great vessels appear unremarkable. Perihilar bilateral interstitial opacities are present, more conspicuous in the interval. There is been interval improvement in aeration of the lungs bilaterally but with persistent interstitial markings and consolidation at the left lung base. No pneumothorax. Small bilateral left greater than right pleural effusions are seen. There are no significant osseous abnormalities. IMPRESSION: Findings of CHF with interstitial pulmonary vascular congestion and small bilateral pleural effusions and associated bibasilar atelectasis. However, there has been slight improvement in aeration of the lungs Electronically signed by: Сергей Gómez MD (01/14/2020 12:07 PM) [id number]
[2020-01-14] MEDS ORDERED: ELECTROLYTE (NON-ICU) PROTOCOL MC PRN (12:15)
--- NOTE | 2020-01-14 12:20 | NUR ---
Pt having more dyspnea and trouble breathing. Coughing yellow tinged sputum but unable to expel it. pt O2 saturation dropping from 95% down to 90-91%. Increased HFNC to 10L. Gave pt 0.5mg Ativan and albuterol inhaler, PRN orders. Pt O2 saturation at 88%. Put pt back onto bipap at this time.
--- NOTE | 2020-01-14 12:30 | NUR ---
Contacted Monster Monzon, pt's DPOA and updated him on patient's change in status. She is getting more confused and O2 saturations dropping and requiring BiPAP. Informed him we would continue to update him.
[2020-01-14] MEDS: ENOXAPARIN ** NOTE DOSE ** SYRINGE SQ SCH (12:35)
[2020-01-14] MEDS ORDERED: FUROSEMIDE 40 MG/4 ML VIAL IVP ONE (12:45)
[2020-01-14] MEDS ORDERED: FUROSEMIDE 40 MG/4 ML VIAL ONE (12:45)
--- NOTE | 2020-01-14 12:45 | NUR ---
Dr Walker at bedside assessing pt. pt trying to pull off bipap saying "I'm tired". attempted to put 15L NRB on patient, sats at 85%. pt kept pulling off that as well saying "I'm tired.. I'm tired." Returned to bipap after failed attempt of NRB. When pt on bipap, O2 saturation at 95-97%. Dr Walker ordered for lasix 40mg IV, morphine 1mg, and nitro paste. Dr. Walker reported that he will call DPOA on his cell phone.
[2020-01-14] MEDS ORDERED: NITROGLYCERIN OINT 1 GM PACKET. ONE (13:04)
[2020-01-14] MEDS ORDERED: NITROGLYCERIN OINT 1 GM PACKET. TP ONE (14:15)
--- NOTE | 2020-01-14 14:50 | NUR ---
Pt removed bipap and this RN has put 10L HFNC on. Oxygen saturation currently at 97%. will continue to monitor. Pt is resting comfortably at this time.
--- NOTE | 2020-01-14 18:27 | PN ---
DATE: SUBJECTIVE: An 89-year-old white female who is in the ICU bed #6 with a history of pneumonia and acute respiratory failure. The patient is markedly alert and oriented. Speech is fluent and spontaneous. She recognized me by name and was talking in complete senses. She did have some pain under her left jaw, but there was point tenderness to the submandibular gland. OBJECTIVE: VITAL SIGNS: The patient's pulse rate had gone up and that was probably secondary to the albuterol treatments she had for her respiratory therapy treatment. The patient described no chest pain. Her skin was warm and dry. The patient again has rehab for the last couple of days after she wanted to be transferred to another facility and she responded to me and in front of the nurse that she did not want to go anywhere, "I wanna stay here. I do not want to go there or have any more ____ and those were very worse." The patient's vital signs had adjusted up to 147/70, respiratory rate 20, pulse anywhere from 94-118, oxygen saturation on 5 liters at 96% and that just with a nasal cannula I might add. LUNGS: Otherwise, her lungs are diminished throughout, poor movement of air, but clearer than they have been, and moving air in the lobes much better than she has. CARDIOVASCULAR: Tachycardic. EKG was performed, basically unchanged from admission EKG. ABDOMEN: Soft. EXTREMITIES: No clubbing, cyanosis, nor edema. There was no pitting. Pulses were noted distally and again the skin was warm and dry. NEUROLOGIC: She was alert and oriented as she ever has been. LABORATORY DATA: Her white count was 16,000, hemoglobin 11 and 35. Chemistries show a 141, 4.7, BUN and creatinine of 48 and 2.4. She ____ blood sugars, Accu-Cheks to monitor this. Magnesium was low, so several things to do. Her albumin has dropped to 3 with moderate protein malnutrition. IMPRESSION: Therefore, of a multilobar pneumonia, acute respiratory failure, leukocytosis, chronic renal failure stage 3, moderate protein malnutrition. She is COVID negative. PLAN: Continue on IV antibiotic therapy or some respiratory therapy, may need to start with PT, OT. Overall, doing much better. We will correct some of her deficiencies of low magnesium and put her on sliding scale for her blood sugars, probably secondary to the Decadron, which also will be adjusted downward and tapered. SOHEILA LEONE MD DR: RAFAEL/milan JOB#: [id number] / [id number]
[2020-01-14] MEDS: FAMOTIDINE 20 MG TABLET PO SCH (20:57)
[2020-01-15] VITALS (21 sets, daily range): BP systolic 93–137; BP diastolic 42–88
[2020-01-15] MEDS: IPRATRPIUM/ALBUTEROL 0.5/2.5MG 3 ML NEBU. NEB SCH ×4 (05:48→19:48)
[2020-01-15 06:16] LABS: BASO # 0.1 x10^3/uL (0.0-0.2); BASO % 0 % (0-3); EOS % 0 % (0-3); LYMPH # 0.8 x10^3/uL (1.0-4.8); LYMPH % 4 % (24-48); MEAN CORPUSCULAR HEMOGLOBIN 29 pg (25-35); MEAN CORPUSCULAR HGB CONC 32 g/dL (31-37); MEAN CORPUSCULAR VOLUME 90 fL (79-100); MONO # 0.7 x10^3/uL (0.0-1.1); MONO % 4 % (0-9); NEUT # 16.9 x10^3uL (1.8-7.7); NEUT % 92 % (31-73); PLATELET COUNT 198 x10^3/uL (140-400); RED BLOOD COUNT 3.77 x10^6/uL (3.50-5.40); RED CELL DISTRIBUTION WIDTH 13.3 % (11.5-14.5); WHITE BLOOD COUNT 18.4 x10^3/uL (4.0-11.0)
[2020-01-15 06:24] LABS: CALCIUM 8.5 mg/dL (8.5-10.1); CREATININE 2.7 mg/dL (0.6-1.0); GFR 16.6; POTASSIUM 4.3 mmol/L (3.5-5.1)
[2020-01-15] MEDS: CLOPIDOGREL BISULFATE 75 MG TABLET PO SCH (08:25)
[2020-01-15] MEDS: ASPIRIN CHEWABLE 81 MG TABLET. PO SCH ×2 (08:25→20:41)
[2020-01-15] MEDS: amLODIPine BESYLATE 10 MG TABLET PO SCH (08:27)
[2020-01-15] MEDS: METOPROLOL TART IMMED RELEASE 25 MG TABLET PO SCH ×2 (08:27→20:42)
[2020-01-15] MEDS: ENOXAPARIN ** NOTE DOSE ** SYRINGE SQ SCH (08:28)
[2020-01-15] MEDS: DEXAMETHASONE SOD PHOS 4 MG/ML VIAL. IVP SCH ×2 (08:28→20:41)
[2020-01-15] MEDS: INSULIN LISPRO 300 UNITS/3 ML VIAL. SQ SCH ×3 (08:43→17:11)
[2020-01-15] MEDS ORDERED: FUROSEMIDE 40 MG/4 ML VIAL ONE (10:14)
[2020-01-15] MEDS ORDERED: FUROSEMIDE 40 MG/4 ML VIAL IVP ONE (10:20)
[2020-01-15] MEDS: BENZONATATE 100 MG CAPSULE. PO PRN ×2 (13:16→20:40)
--- NOTE | 2020-01-15 14:53 | PN ---
DATE: SUBJECTIVE: The patient is making excellent progress, feels much better, sitting at the side of bed, eating, talkative and greeting one and all. The patient has made excellent progress. Continues with IV antibiotic therapy. She is diuresed with her Lasix. X-ray yesterday showed a problem with heart failure. OBJECTIVE: GENERAL: The patient shows poor judgment; however, wants to go home. Recommend she go to a skilled facility for rehabilitation, she refuses. VITAL SIGNS: Blood pressure 122/60, respiratory rate 20, pulse 80, afebrile. HEENT: The patient's head was atraumatic, normocephalic. Eyes: PERRLA without jaundice. Mouth and throat were normal. NECK: Supple, no JVD or thyromegaly. LUNGS: Diminished ____ rales and rhonchi noted. CARDIOVASCULAR: Regular sinus rhythm. ABDOMEN: Soft, protuberant, nontender. EXTREMITIES: No clubbing, cyanosis, nor edema. NEUROLOGIC: Alert and oriented x 3. Speech is fluent and spontaneous. LABORATORY DATA: Lab work shows her white count still elevated at 18,000, may be related to Decadron. Hemoglobin 11 and 34. ____, BUN and creatinine 69 and 2.7. Her troponins have been elevated, but in the notes from previous times and recently, she does not want any further testing by Cardiology or further invasive examination of anything going on in her body. The patient otherwise is resting fairly comfortably, making fairly good progress. IMPRESSION: Acute on top of chronic diastolic heart failure, multilobar pneumonia, acute on top of chronic respiratory failure, leukocytosis, chronic renal failure stage 4, moderate protein malnutrition, tachycardic, essential hypertension. PLAN: The patient continued to be monitored carefully, make further evaluation on her as indicated, diurese, but we will continue to monitor her electrolytes and protocol there, fine balance here with her, but again showing poor judgment about her going to a nursing facility, which would be ideal for her at this time. SOHEILA LEONE MD DR: RAFAEL/milan JOB#: [id number] / [id number]
--- NOTE | 2020-01-15 17:57 | NUR ---
PT UP TO SIDE OF BED TODAY TO EAT AND TOLERATING PO WELL. PT OXYGEN REQUIREMENT DOWN TO 3L NC. PT PROGRESSING TOWARDS GOALS.
[2020-01-15] MEDS: AMPICILLIN/SULBACTAM 3 GM in IV NORMAL SALINE 100ML 100 ML IV SCH (20:41)
[2020-01-15] MEDS: LACTOBACILLUS RHAMNOSUS GG 1 CAPSULE. PO SCH (20:41)
[2020-01-15] MEDS: FAMOTIDINE 20 MG TABLET PO SCH (20:41)
[2020-01-16] VITALS (18 sets, daily range): BP systolic 100–149; BP diastolic 52–82
--- NOTE | 2020-01-16 03:15 | NUR ---
Assisted pt up to [facility] to void, pt had a "coughing spell" and now having trouble "catching my breath." HR and BP elevated. Cough drop given without relief followed by attempts to give PRN albuterol inhaler. Pt now anxious and more confused, unable to follow simple commands. O2 saturation dropping from previous upper 90's down to 89-91%. Increased HFNC to 10L. Pt given PRN IV Ativan. Pt O2 sats still at 89-91% with O2 increase. Pt placed back on Bipap at this time. O2 sat improved to >97%, pt now resting in bed with eyes closed. HR and BP also improved.
[2020-01-16] MEDS: IPRATRPIUM/ALBUTEROL 0.5/2.5MG 3 ML NEBU. NEB SCH ×4 (05:33→20:15)
--- NOTE | 2020-01-16 05:50 | NUR ---
Pt now awake after AM lab draw and removing Bipap, stating "I cant wear this anymore." Pt's mentation much improved. AM breathing tx given then Pt placed on O2 at 6L HFNC, with O2 sats currently at 95-97%. Pt resting comfortably in bed.
[2020-01-16 06:06] LABS: BASO % 0 % (0-3); EOS % 0 % (0-3); HEMATOCRIT 36.2 % (36.0-47.0); HEMOGLOBIN 11.6 g/dL (12.0-15.5); LYMPH % 6 % (24-48); MEAN CORPUSCULAR HEMOGLOBIN 29 pg (25-35); MEAN CORPUSCULAR HGB CONC 32 g/dL (31-37); MEAN CORPUSCULAR VOLUME 90 fL (79-100); MONO # 0.7 x10^3/uL (0.0-1.1); MONO % 4 % (0-9); NEUT # 15.1 x10^3uL (1.8-7.7); NEUT % 90 % (31-73); PLATELET COUNT 206 x10^3/uL (140-400); RED BLOOD COUNT 4.02 x10^6/uL (3.50-5.40); RED CELL DISTRIBUTION WIDTH 13.2 % (11.5-14.5); WHITE BLOOD COUNT 16.8 x10^3/uL (4.0-11.0)
[2020-01-16 06:14] LABS: CALCIUM 8.5 mg/dL (8.5-10.1); GFR 14.7; POTASSIUM 4.1 mmol/L (3.5-5.1)
[2020-01-16 06:28] LABS: % LYMPHS 7 % (24-48); % MONOS 5 % (0-10); % SEGS 88 % (35-66); PLT ESTIMATE ADEQUATE (ADEQUATE)
[2020-01-16 06:29] LABS: ANISOCYTOSIS SLIGHT; TEAR DROP CELLS OCC; TOXIC GRANULATION SLIGHT
[2020-01-16] MEDS: DEXAMETHASONE SOD PHOS 4 MG/ML VIAL. IVP SCH (08:33)
[2020-01-16] MEDS: ENOXAPARIN ** NOTE DOSE ** SYRINGE SQ SCH (08:33)
[2020-01-16] MEDS: INSULIN LISPRO 300 UNITS/3 ML VIAL. SQ SCH ×3 (08:33→17:00)
[2020-01-16] MEDS: CLOPIDOGREL BISULFATE 75 MG TABLET PO SCH (08:34)
[2020-01-16] MEDS: LACTOBACILLUS RHAMNOSUS GG 1 CAPSULE. PO SCH ×2 (08:34→19:38)
[2020-01-16] MEDS: ASPIRIN CHEWABLE 81 MG TABLET. PO SCH ×2 (08:34→19:37)
[2020-01-16] MEDS: amLODIPine BESYLATE 10 MG TABLET PO SCH (08:34)
[2020-01-16] MEDS: METOPROLOL TART IMMED RELEASE 25 MG TABLET PO SCH ×2 (10:25→19:38)
--- NOTE | 2020-01-16 18:42 | PN ---
DATE: SUBJECTIVE: The patient is an 89-year-old female, DNR, been in the ICU for acute respiratory failure, pneumonia bilateral lobe. The patient otherwise seems to be resting fairly comfortably and has decided that she will continue to stay here for further rehabilitation if possible. OBJECTIVE: VITAL SIGNS: The patient's blood pressure 114/76, respirations 18, pulse 88, afebrile. GENERAL: The patient is alert and oriented. LUNGS: Crackles in the bases, but improved from where they were, better aeration. CARDIOVASCULAR: Regular sinus rhythm. ABDOMEN: Soft, diffuse tenderness. No rebound or guarding. EXTREMITIES: No clubbing, cyanosis or edema. IMPRESSION: Acute respiratory failure; bilateral lobe pneumonia; congestive heart failure, acute on top of chronic; mild dementia. PLAN: Continue with protein hydration and continue to monitor her and switch over to swing bed if and when possible. Also monitoring her blood sugar, taper down on her Decadron and make further assessment there. SOHEILA LEONE MD DR: RAFAEL/milan JOB#: [id number] / [id number]
[2020-01-16] MEDS ORDERED: DEXAMETHASONE SOD PHOS 4 MG/ML VIAL. IVP SCH (18:45)
[2020-01-16] MEDS: AMPICILLIN/SULBACTAM 3 GM in IV NORMAL SALINE 100ML 100 ML IV SCH (19:37)
[2020-01-16] MEDS: FAMOTIDINE 20 MG TABLET PO SCH (19:37)
[2020-01-16] MEDS: ACETAMINOPHEN 325 MG TABLET PO PRN (21:11)
[2020-01-17 01:07] VITALS: BP 132/82
[2020-01-17] MEDS: IPRATRPIUM/ALBUTEROL 0.5/2.5MG 3 ML NEBU. NEB SCH ×4 (05:04→20:01)
[2020-01-17 05:47] VITALS: BP 132/73
[2020-01-17 07:17] LABS: BASO % 0 % (0-3); EOS % 0 % (0-3); HEMATOCRIT 35.2 % (36.0-47.0); HEMOGLOBIN 11.4 g/dL (12.0-15.5); LYMPH # 1.5 x10^3/uL (1.0-4.8); LYMPH % 11 % (24-48); MEAN CORPUSCULAR HEMOGLOBIN 29 pg (25-35); MEAN CORPUSCULAR HGB CONC 32 g/dL (31-37); MEAN CORPUSCULAR VOLUME 90 fL (79-100); MONO % 7 % (0-9); NEUT # 11.5 x10^3uL (1.8-7.7); NEUT % 82 % (31-73); PLATELET COUNT 201 x10^3/uL (140-400); RED BLOOD COUNT 3.93 x10^6/uL (3.50-5.40); RED CELL DISTRIBUTION WIDTH 13.7 % (11.5-14.5)
[2020-01-17 07:25] LABS: CALCIUM 8.7 mg/dL (8.5-10.1); CREATININE 2.5 mg/dL (0.6-1.0); GFR 18.2; POTASSIUM 4.1 mmol/L (3.5-5.1)
[2020-01-17] MEDS: INSULIN LISPRO 300 UNITS/3 ML VIAL. SQ SCH ×3 (08:00→17:00)
[2020-01-17] MEDS: LACTOBACILLUS RHAMNOSUS GG 1 CAPSULE. PO SCH ×2 (10:57→20:05)
[2020-01-17] MEDS: ENOXAPARIN ** NOTE DOSE ** SYRINGE SQ SCH (10:57)
[2020-01-17] MEDS: ACETAMINOPHEN 325 MG TABLET PO PRN (10:57)
[2020-01-17] MEDS: ASPIRIN CHEWABLE 81 MG TABLET. PO SCH ×2 (10:57→20:06)
[2020-01-17] MEDS: METOPROLOL TART IMMED RELEASE 25 MG TABLET PO SCH ×2 (10:58→20:06)
[2020-01-17] MEDS: CLOPIDOGREL BISULFATE 75 MG TABLET PO SCH (10:58)
[2020-01-17] MEDS: FUROSEMIDE 40 MG TABLET PO SCH (10:59)
[2020-01-17] MEDS: amLODIPine BESYLATE 10 MG TABLET PO SCH (10:59)
[2020-01-17] MEDS: BENZONATATE 100 MG CAPSULE. PO PRN (10:59)
[2020-01-17 18:04] VITALS: BP 135/82
[2020-01-17 19:59] VITALS: BP 122/76
[2020-01-17] MEDS: AMPICILLIN/SULBACTAM 3 GM in IV NORMAL SALINE 100ML 100 ML IV SCH (20:05)
[2020-01-17] MEDS: FAMOTIDINE 20 MG TABLET PO SCH (20:05)
[2020-01-17 22:43] VITALS: BP 111/67
--- NOTE | 2020-01-18 01:16 | PN ---
DATE: SUBJECTIVE: An 89-year-old female who came in initially with pneumonia, bilateral lobe as well as acute respiratory failure. The patient is still very weak, tired, trying to get her on a swing bed. The patient's x-ray showed possible congestive heart failure, placed her on furosemide daily 40 mg, was not to dry her out too much. She does not have any swelling in her legs. The patient is still eventually wants to go home and told her that probably not the best idea since she is still so weak. OBJECTIVE: VITAL SIGNS: Blood pressure 130/70, respiratory rate 20, pulse 90, afebrile, 2 liters at 96%, markedly improved. GENERAL: The patient is alert, very pensive, depressed looking. LUNGS: Diminished crackles noted in the bases, but improved. CARDIOVASCULAR: Regular sinus rhythm. ABDOMEN: Soft, nontender. EXTREMITIES: No clubbing, cyanosis or edema. NEUROLOGIC: The patient is alert and oriented, baseline for her there. ASSESSMENT AND PLAN: The patient otherwise seems to be resting fairly comfortably and making fairly good progress overall. SOHEILA LEONE MD DR: RAFAEL/milan JOB#: [id number] / [id number]
[2020-01-18] MEDS: IPRATRPIUM/ALBUTEROL 0.5/2.5MG 3 ML NEBU. NEB SCH ×4 (04:53→20:45)
[2020-01-18 05:29] VITALS: BP 115/59
[2020-01-18 06:57] LABS: BASO % 0 % (0-3); EOS % 0 % (0-3); HEMATOCRIT 34.4 % (36.0-47.0); HEMOGLOBIN 11.3 g/dL (12.0-15.5); LYMPH % 19 % (24-48); MEAN CORPUSCULAR HEMOGLOBIN 29 pg (25-35); MEAN CORPUSCULAR HGB CONC 33 g/dL (31-37); MEAN CORPUSCULAR VOLUME 90 fL (79-100); MONO # 1.1 x10^3/uL (0.0-1.1); MONO % 10 % (0-9); NEUT # 7.3 x10^3uL (1.8-7.7); NEUT % 71 % (31-73); PLATELET COUNT 188 x10^3/uL (140-400); RED BLOOD COUNT 3.84 x10^6/uL (3.50-5.40); RED CELL DISTRIBUTION WIDTH 13.1 % (11.5-14.5); WHITE BLOOD COUNT 10.4 x10^3/uL (4.0-11.0)
[2020-01-18 07:04] LABS: CALCIUM 8.6 mg/dL (8.5-10.1); CREATININE 2.1 mg/dL (0.6-1.0); GFR 22.2; POTASSIUM 3.4 mmol/L (3.5-5.1)
[2020-01-18] MEDS: INSULIN LISPRO 300 UNITS/3 ML VIAL. SQ SCH ×3 (08:00→17:00)
[2020-01-18] MEDS: ENOXAPARIN ** NOTE DOSE ** SYRINGE SQ SCH (08:10)
[2020-01-18] MEDS: ASPIRIN CHEWABLE 81 MG TABLET. PO SCH ×2 (08:11→20:42)
[2020-01-18] MEDS: FUROSEMIDE 40 MG TABLET PO SCH (08:11)
[2020-01-18] MEDS: DEXAMETHASONE 4 MG TABLET PO SCH (08:11)
[2020-01-18] MEDS: LACTOBACILLUS RHAMNOSUS GG 1 CAPSULE. PO SCH ×2 (08:11→20:42)
[2020-01-18] MEDS: amLODIPine BESYLATE 10 MG TABLET PO SCH (08:11)
[2020-01-18] MEDS: METOPROLOL TART IMMED RELEASE 25 MG TABLET PO SCH ×2 (08:12→20:43)
[2020-01-18] MEDS: CLOPIDOGREL BISULFATE 75 MG TABLET PO SCH (08:12)
--- NOTE | 2020-01-18 08:56 | NUR ---
Patient calm and cooperative. Patient refused subcutaneous injection stating that it was to painful. Patient did not eat breakfast. Patient had difficulty swallowing medications this morning. Patient appears tired and stated she has not slept much.
[2020-01-18 11:06] VITALS: BP 169/78
--- NOTE | 2020-01-18 13:08 | PN ---
DATE: 01/18/2020 SUBJECTIVE: An 89-year-old female in with acute respiratory failure secondary to pneumonia and congestive heart failure. OBJECTIVE: VITAL SIGNS: The patient is resting fairly comfortably, seems a little tense and somewhat depressed over the overall situation. Blood pressure 169/78, respiratory rate 20, pulse 100. Afebrile, oxygen saturation on 2 liters at 96%, on room air at 87. She needs her oxygen, unable to get it for her at home until Sunday as this is a Sunday Day weekend. The patient will continue to be monitored. She says she does feel a little better with her terms for breathing. LUNGS: Diminished. Some coarse breath sounds in the upper lobes and otherwise unremarkable. CARDIOVASCULAR: Regular sinus rhythm. ABDOMEN: Soft, nontender. EXTREMITIES: No clubbing, cyanosis or edema. She has chronic pain to her legs. IMPRESSION: Acute on chronic respiratory failure, acute on top of chronic diastolic heart failure, pneumonia of unspecified etiology, anemia of chronic kidney disease with renal stasis, hyperglycemia secondary to use of steroids for her breathing, COVID-19 negative. PLAN: Continue with aggressive antibiotic therapy, diuresis and make further evaluation on her as indicated. SOHEILA LEONE MD DR: RAFAEL/milan JOB#: [id number] / [id number]
[2020-01-18] MEDS: AMPICILLIN/SULBACTAM 3 GM in IV NORMAL SALINE 100ML 100 ML IV SCH (13:55)
[2020-01-18 15:00] VITALS: BP 139/68
[2020-01-18 19:44] VITALS: BP 132/82
[2020-01-18] MEDS: BENZONATATE 100 MG CAPSULE. PO PRN (20:42)
[2020-01-18] MEDS: FAMOTIDINE 20 MG TABLET PO SCH (20:43)
[2020-01-19] MEDS: AMPICILLIN/SULBACTAM 3 GM in IV NORMAL SALINE 100ML 100 ML IV SCH ×2 (01:52→14:20)
[2020-01-19] MEDS: IPRATRPIUM/ALBUTEROL 0.5/2.5MG 3 ML NEBU. NEB SCH ×4 (04:48→20:07)
[2020-01-19 05:14] VITALS: BP 108/71
[2020-01-19] MEDS: LACTOBACILLUS RHAMNOSUS GG 1 CAPSULE. PO SCH ×2 (08:11→21:00)
[2020-01-19] MEDS: amLODIPine BESYLATE 10 MG TABLET PO SCH (08:12)
[2020-01-19] MEDS: FUROSEMIDE 40 MG TABLET PO SCH (08:12)
[2020-01-19] MEDS: CLOPIDOGREL BISULFATE 75 MG TABLET PO SCH (08:13)
[2020-01-19] MEDS: METOPROLOL TART IMMED RELEASE 25 MG TABLET PO SCH ×2 (08:13→21:00)
[2020-01-19] MEDS: DEXAMETHASONE 4 MG TABLET PO SCH (08:14)
[2020-01-19] MEDS: BENZONATATE 100 MG CAPSULE. PO PRN ×2 (08:14→20:59)
[2020-01-19] MEDS: ASPIRIN CHEWABLE 81 MG TABLET. PO SCH ×2 (08:15→21:00)
[2020-01-19 08:18] VITALS: BP 144/74
[2020-01-19] MEDS: INSULIN LISPRO 300 UNITS/3 ML VIAL. SQ SCH ×3 (08:18→17:15)
[2020-01-19] MEDS: ENOXAPARIN ** NOTE DOSE ** SYRINGE SQ SCH (09:32)
[2020-01-19 11:00] VITALS: BP 132/80
[2020-01-19] MEDS ORDERED: IBUP-571 PO (11:51)
[2020-01-19] MEDS ORDERED: IBUPROFEN 600 MG TABLET. PO PRN (12:00)
--- NOTE | 2020-01-19 12:22 | NUR ---
NURSING NOTE PT STATES SHE WANTS HER "PINK/RED PILL" FOR HER BACK PAIN. PT DOES NOT REMEMBER THE NAME. PT HAS MEDICATION LIST FROM HOME, POINTED AT IBU 200MG 3 TABLETS BY MOUTH Q6-8 HRS NEEDED. WHEN THIS NURSE TOOK THE MEDICATION INTO PT ROOM, PT REFUSED IT STATING THE ONE SHE WANTS IS PINK OR RED AND IT STARTS WITH A B. THIS NURSE IS NOT SURE WHAT MEDICATION THE PT IS REQUEST BUT OFFERED IBU FOR HER BACK PAIN AND PT REFUSED. MARIA G GODINEZ.
[2020-01-19 15:00] VITALS: BP 137/75
[2020-01-19 19:30] VITALS: BP 124/62
[2020-01-19] MEDS: FAMOTIDINE 20 MG TABLET PO SCH (21:00)
[2020-01-20] MEDS: AMPICILLIN/SULBACTAM 3 GM in IV NORMAL SALINE 100ML 100 ML IV SCH (01:40)
--- NOTE | 2020-01-20 01:44 | PN ---
DATE: 01/19/2020 SUBJECTIVE: An 89-year-old female in with acute respiratory failure. The patient is still very depressed, feeling cold, trying to get her onto the skilled facility. She wants to go home with oxygen, trying to set that up along with hospice. OBJECTIVE: GENERAL: The patient is alert, somewhat diminished in terms of her affect, although she says she feels somewhat better. LUNGS: Diminished throughout, but somewhat improved. CARDIOVASCULAR: Regular sinus rhythm. ABDOMEN: Soft, diffuse tenderness. EXTREMITIES: No clubbing, cyanosis, nor edema. NEUROLOGIC: Baseline for her. IMPRESSION: Acute on chronic respiratory failure, pneumonia bilateral, acute on top of chronic diastolic heart failure. PLAN: The patient to continue on mild diuresis. Continue to monitor electrolytes ____ and hopefully get her into a skilled facility or get her home as soon as possible with oxygen, ____ 91% with oxygen, she drops down to 87% without it. SOHEILA LEONE MD DR: RAFAEL/milan JOB#: [id number] / [id number]
[2020-01-20] MEDS: IPRATRPIUM/ALBUTEROL 0.5/2.5MG 3 ML NEBU. NEB SCH ×2 (05:27→11:13)
[2020-01-20 05:55] VITALS: BP 138/73
[2020-01-20] MEDS: INSULIN LISPRO 300 UNITS/3 ML VIAL. SQ SCH ×2 (07:50→12:00)
[2020-01-20] MEDS: LACTOBACILLUS RHAMNOSUS GG 1 CAPSULE. PO SCH (08:24)
[2020-01-20] MEDS: ASPIRIN CHEWABLE 81 MG TABLET. PO SCH (08:24)
[2020-01-20] MEDS: amLODIPine BESYLATE 10 MG TABLET PO SCH (08:25)
[2020-01-20] MEDS: CLOPIDOGREL BISULFATE 75 MG TABLET PO SCH (08:26)
[2020-01-20] MEDS: METOPROLOL TART IMMED RELEASE 25 MG TABLET PO SCH (08:26)
[2020-01-20] MEDS: DEXAMETHASONE 4 MG TABLET PO SCH (08:26)
[2020-01-20] MEDS: ENOXAPARIN ** NOTE DOSE ** SYRINGE SQ SCH (08:27)
[2020-01-20] MEDS: FUROSEMIDE 40 MG TABLET PO SCH (08:33)
[2020-01-20 11:15] VITALS: BP 96/65
--- NOTE | 2020-01-20 13:18 | DISCH ---
DISCHARGE ORDERS DISCHARGE DATE: Jan 20, 2020 FINAL DIAGNOSIS acute respiratory failure/COPD/HF CONDITION AT DISCHARGE: Stable Code Status: DNR/DNI SNF STAY <30 DAYS: No HOSPICE: Yes HOSPICE EVALUATE & TREAT: Yes ADMIT TO LTAC: No POST DISCHARGE ORDERS: ACTIVITY ORDERS: Activity as tolerated WEIGHT BEARING STATUS: No restrictions DIET AFTER DISCHARGE: Regular DISCHARGE MEDICATIONS: Home Meds Reported Medications Ibuprofen (Ibu) 600 Mg Tablet, 1 TAB PO PRN Q6-8HRS PRN for PAIN for 6 Days, #24 TAB 0 Refills 01/19/20 Metoprolol Tartrate (METOPROLOL TARTRATE) 50 Mg Tablet, 1 TAB PO BID for AFIB, #60 TAB 5 Refills 01/13/20 Clopidogrel Bisulfate (PLAVIX) 75 Mg Tablet, 1 TAB PO DAILY for platelets for 30 Days, #30 TAB 0 Refills 01/13/20 Aspirin (Children's Aspirin) 81 Mg Tab.chew, 81 MG PO BID for heart disease, TAB.CHEW 01/13/20 Amlodipine Besylate (NORVASC) 10 Mg Tablet, 1 TAB PO DAILY for bp, #30 TAB 5 Refills 01/13/20 Famotidine (FAMOTIDINE) 20 Mg Tablet, 1 TAB PO HS for reflux, #60 TAB 5 Refills 01/13/20 Atorvastatin Calcium (ATORVASTATIN CALCIUM) 40 Mg Tablet, 1 TAB PO HS for cad, #30 TAB 5 Refills 01/13/20 SOHEILA LEONE MD Jan 20, 2020 13:18
--- NOTE | 2020-01-20 15:13 | NUR ---
Discharge Note: BUDDY LUE[facility] Discharge instructions and discharge home medications reviewed with SHELLY Monster Aragonluz and a copy given. All questions have been answered and understanding verbalized. All belongings returned with pt at discharge. IV line discontinued. Patient discharged to Home w/services of [facility] with DPMELLY Monster Rivera via Wheelchair. Assisted pt into vehicle. Addendum: 01/20/20 at 1516 by OTIS ORTIZ RN Pt also discharged on 2L NC via portable oxygen. Instructions given to SHELLY about it.
--- NOTE | 2020-01-24 14:38 | DS ---
DATE OF DISCHARGE: 01/20/2020 HOSPITAL COURSE: An 89-year-old female who came in through the Emergency Room. The patient was having trouble while breathing and shortness of breath, some chest discomfort. The patient's oxygen saturation dropped down in the low 80s. It was noted at that time the patient was medically competent and is a DNR and did not want to be transferred for further testing anywhere. She had spent some time down at [place] earlier this year, had a heart catheterization and the citrus fruit packer said there really was not much more to do except for extensive surgery and she absolutely refused and absolutely refused to be transferred at this time. In any case, the patient was placed in the ICU with acute on top of chronic respiratory failure, chest pain, cardiac enzymes were elevated, although as noted, the patient did not want anything done including a consult. The patient was thought at first to have a pneumonic process and she was placed on IV antibiotic therapy with a fairly good success. The patient in turn was also repeated on her chest x-ray, showed the possibility of congestive heart failure, so she was diuresed. Her white count came down from around 18,000 down to 10,000 and the like, blood gases at first showed a pH of 7.07, pCO2 of 78, pO2 of 49; however, improved to 7.39, pO2 of 82, pCO2 of 34. The patient in turn as noted made excellent progress. She was monitored on her blood sugars. She had been placed on Decadron and aggressive pulmonary toilet. Her kidney function was also diminished, had come down from a creatinine of 3 down to 2.1. The patient's glucose was as high as 300 and BNP was 3800. Her albumin levels, however, were normal. She was coronavirus negative and the patient made reasonably good progress through the rest of her hospitalization, regaining a lot of strength, initially had been placed on BiPAP when in the ICU and eventually came down to just being on a nasal cannula, maintaining good oxygen saturation at that time. In any case, the patient made good progress and she was discharged and she also discussed being placed on hospice as were the instructions from her citrus fruit packer several months ago. In any case, the patient was in fairly good condition when she left, she was on nasal cannula and receiving oxygen and aggressive pulmonary toilet, but she was stable enough to return to her home. IMPRESSION: Acute on top of chronic respiratory failure, pneumonia of unspecified etiology, community acquired, acute on top of chronic diastolic heart failure, hyperglycemia secondary to the use of steroids, acute on chronic renal failure, renal stasis, anemia of chronic disease, severe atherosclerosis of the coronary arteries. PLAN: The patient will be home on a heart healthy diet, decreased activity, and she will be followed by a hospice group of her choice. SOHEILA LEONE MD DR: RAFAEL/nts JOB#: [id number] / [id number]
== END 2020-01-20 15:10 | disposition hospice, home (50) | DRG 871 ==
LOC: ER 07:33 → ICU 08:07 → 1 SOUTH 01-17 06:14
PROVIDERS: ADMIT Family Medicine; ATTEND Family Medicine
PROC: 5A09357 Assistance with Respiratory Ventilation, Less than 24 Consecutive Hours, Continuous Positive Airway Pressure (ICD-10-PCS; principal; 2020-01-13)
PROC: 5A09357 Assistance with Respiratory Ventilation, Less than 24 Consecutive Hours, Continuous Positive Airway Pressure (ICD-10-PCS; 2020-01-14)
PROC: 5A09357 Assistance with Respiratory Ventilation, Less than 24 Consecutive Hours, Continuous Positive Airway Pressure (ICD-10-PCS; 2020-01-16)
DX: A41.9 Sepsis, unspecified organism (principal); J96.20 Acute and chronic respiratory failure, unspecified whether with hypoxia or hypercapnia; I21.4 Non-ST elevation (NSTEMI) myocardial infarction; J18.9 Pneumonia, unspecified organism; I50.33 Acute on chronic diastolic (congestive) heart failure; N17.9 Acute kidney failure, unspecified; E44.0 Moderate protein-calorie malnutrition; I13.0 Hypertensive heart and chronic kidney disease with heart failure and stage 1 through stage 4 chronic kidney disease, or unspecified chronic kidney disease; D63.1 Anemia in chronic kidney disease; F03.90 Unspecified dementia, unspecified severity, without behavioral disturbance, psychotic disturbance, mood disturbance, and anxiety; I48.91 Unspecified atrial fibrillation; N18.3 Chronic kidney disease, stage 3 (moderate); Z20.828 Contact with and (suspected) exposure to other viral communicable diseases; Z66 Do not resuscitate; Z86.73 Personal history of transient ischemic attack (TIA), and cerebral infarction without residual deficits; Z87.01 Personal history of pneumonia (recurrent); Z90.710 Acquired absence of both cervix and uterus; Z86.718 Personal history of other venous thrombosis and embolism; Z79.01 Long term (current) use of anticoagulants; Z90.49 Acquired absence of other specified parts of digestive tract; Z79.899 Other long term (current) drug therapy
CPT/HCPCS: 36415; 36600; 71045; 80048; 80053; 81001; 82803; 82947; 83605; 83735; 83880; 84484; 85007; 85025; 87040; 93005; 94640; 94660; 94760; 96365; 96367; 96375; J0295; J1100; J1650; J1815; J1940; J1956; J2060; J2270; J2930; J3475; J7613; J8540; 99285-25; U0003-CS